=== PATIENT | female | born 1980 | race Caucasian/White ===

== ENCOUNTER 2019-04-01 22:59 | Emergency (ER) | payer SELFPAY ==
[~2019-04-01] VITALS: Ht 170.2 cm; Wt 77.1 kg
[2019-04-01 23:03] VITALS: Ht 170.2 cm; Wt 77.1 kg
[2019-04-02 00:18] LABS: UA SPECIFIC GRAVITY 1.015 (1.005-1.035); microscopic required? YES; urine erythrocyte NEGATIVE (NEGATIVE)
[2019-04-02 00:21] LABS: BASOPHIL % 0.3 % (0-2); PLATELET COUNT 253 x10^3mcL (130-400); RED CELL DISTRIBUTION WIDTH 13.1 % (11.5-14.5)
[2019-04-02 00:38] LABS: T3 TOTAL 1.31 ng/mL
[2019-04-02 00:51] LABS: ALKALINE PHOSPHATASE 70 U/L (46-116); ALT/SGPT 35 U/L (14-59); AST/SGOT 22 U/L (15-37); BILIRUBIN TOTAL 0.5 mg/dL (0.20-1.00); C REACTIVE PROTEIN 1.8 mg/dL (<=0.9); TOTAL PROTEIN, SERUM 6.9 g/dL (6.4-8.2)
[2019-04-02 00:52] LABS: ALBUMIN 3.3 g/dL (3.4-5.0)
[2019-04-02 00:55] LABS: FREE T4 0.87 ng/dL (0.76-1.46); FREE THYROXINE INDEX 2.3 ug/dL (1.4-4.5); T4(THYROXINE) 7.3 ug/dL (4.7-13.3)
[2019-04-02 01:00] LABS: CALCIUM 8.4 mg/dL (8.5-10.1); CARBON DIOXIDE 27.5 mmol/L (21-32); CHLORIDE SERUM 99 mmol/L (98-107); CREATININE SERUM 0.8 mg/dL (0.6-1.0); GFR1 > 60 mL/min; GLUCOSE SERUM 104 mg/dL (74-106); POTASSIUM SERUM 3.3 mmol/L (3.5-5.1); SODIUM SERUM 137 mmol/L (136-145)
[2019-04-02 01:10] LABS: ERYTHROCYTE SED RATE 10 mm/hr (0-20)
[2019-04-02 02:17] VITALS: BP 111/60
== END 2019-04-02 02:17 | disposition home or self-care (01) ==
LOC: ED 22:59
PROVIDERS: Specialist
DX: I77.6 Arteritis, unspecified (principal)
CPT/HCPCS: 36415; 84439; J1885; J7512